=== PATIENT | male | born 1945 | race Caucasian/White ===

== ENCOUNTER 2017-07-27 08:22 | Emergency (ER) | payer MEDICARE, OTHER ==
[~2017-07-27] VITALS: Ht 172.7 cm; Wt 77.2 kg
[~2017-07-27 08:22] MED LIST: ASPI81TA52 PO; ATOR20TA66 PO; CARV3.122 PO; CETI-102 PO; CLOP75TA33 PO; DASA140T PO; LEVO50TA8 PO; LISI2.5T2 PO; NITR0.4T48 SL; PRED5TAB PO
[2017-07-27 09:11] LABS: BASOPHILS % (AUTO) 0.3 % (0-1); EOSINOPHILS # (AUTO) 0.1 X10'3 (0-0.9); EOSINOPHILS % (AUTO) 2.7 % (0-6); HEMATOCRIT 40.5 % (42.0-52.0); HEMOGLOBIN 13.6 g/dl (14.0-17.9); LYMPHOCYTES # (AUTO) 1.9 X10'3 (1.1-4.8); LYMPHOCYTES % (AUTO) 36.9 % (21-51); MEAN CORPUSCULAR HEMOGLOBIN 28.3 PG (27.0-31.0); MEAN CORPUSCULAR HGB CONC 33.5 % (33.0-36.5); MEAN CORPUSCULAR VOLUME 84.3 FL (78-98); MEAN PLATELET VOLUME 6.6 FL (7.4-10.4); MONOCYTES # (AUTO) 0.6 X10'3 (0-0.9); MONOCYTES % (AUTO) 12.3 % (2-12); NEUTROPHILS # (AUTO) 2.5 X10'3 (1.8-7.7); NEUTROPHILS % (AUTO) 47.8 % (42-75); PLATELET COUNT 293 X10'3 (140-440); WHITE BLOOD COUNT 5.3 X10'3 (4.5-11.0)
[2017-07-27 09:22] LABS: PARTIAL THROMBOPLASTIN TIME 30 SECONDS (22-32)
[2017-07-27 09:38] LABS: ALANINE AMINOTRANSFERASE 21 U/L (12-78); ALBUMIN 3.6 G/DL (3.4-5.0); ALBUMIN/GLOBULIN RATIO 0.9 (1.1-1.5); ALKALINE PHOSPHATASE 82 IU/L (46-116); ANION GAP 10 (8-16); ASPARTATE AMINO TRANSFERASE 27 U/L (10-37); BILIRUBIN,TOTAL 0.2 MG/DL (0.1-1.0); BLOOD UREA NITROGEN 21 MG/DL (7-18); BUN/CREATININE RATIO 23.1 (5.4-32.0); CALCIUM 9.1 MG/DL (8.5-10.1); CHLORIDE 108 MMOL/L (99-107); CREATININE 0.91 MG/DL (0.60-1.10); GLUCOSE 96 MG/DL (70-104); POTASSIUM 3.8 MMOL/L (3.5-5.1); SODIUM 144 MMOL/L (135-145); TOTAL CARBON DIOXIDE 25.9 MMOL/L (24-32); TOTAL PROTEIN 7.7 G/DL (6.4-8.2); eGFR 82 ML/MIN
[2017-07-27 11:28] VITALS: BP 160/92
[2017-07-27 11:30] VITALS: BP 160/92
[2017-07-27 11:32] VITALS: BP 160/92
[2017-07-27 11:36] VITALS: BP 175/98
[2017-07-27 11:40] VITALS: BP 175/98
[2017-07-27 12:42] VITALS: BP 183/93
== END 2017-07-27 12:47 | disposition home or self-care (01) ==
LOC: ER 08:23
DX: J90 Pleural effusion, not elsewhere classified (principal); I25.10 Atherosclerotic heart disease of native coronary artery without angina pectoris; I11.0 Hypertensive heart disease with heart failure; I50.9 Heart failure, unspecified; E11.9 Type 2 diabetes mellitus without complications; E78.00 Pure hypercholesterolemia, unspecified; Z95.5 Presence of coronary angioplasty implant and graft; Z98.890 Other specified postprocedural states; Z88.8 Allergy status to other drugs, medicaments and biological substances; Z79.82 Long term (current) use of aspirin; Z79.899 Other long term (current) drug therapy
CPT/HCPCS: 32554; 32555; 36415; 71045; 80053; 83880; 84145; 84484; 85025; 85610; 85730; 93005; 99285

== ENCOUNTER 2018-04-21 10:36 | Emergency (ER) | payer MEDICARE, OTHER ==
[~2018-04-21] VITALS: Ht 172.7 cm; Wt 75.9 kg
[2018-04-21 10:54] VITALS: BP 165/70
== END 2018-04-21 12:32 | disposition left against medical advice (07) ==
LOC: ER 10:37
DX: S60.921A Unspecified superficial injury of right hand, initial encounter (principal); Z53.21 Procedure and treatment not carried out due to patient leaving prior to being seen by health care provider; X58.XXXA Exposure to other specified factors, initial encounter; Y93.89 Activity, other specified; Y92.89 Other specified places as the place of occurrence of the external cause; Y99.8 Other external cause status

== ENCOUNTER 2018-06-10 07:35 | Inpatient (IN) | payer MEDICARE, OTHER | END 2018-06-13 13:35 | disposition home or self-care (01) | LOC: SUR 3N 06-11 00:23 → ER 07:35 → ED HOLD 10:10 → SUR 3N 11:40 | DX: L03.113 Cellulitis of right upper limb (principal); I50.33 Acute on chronic diastolic (congestive) heart failure; C91.10 Chronic lymphocytic leukemia of B-cell type not having achieved remission; Z85.820 Personal history of malignant melanoma of skin; E78.5 Hyperlipidemia, unspecified; I11.0 Hypertensive heart disease with heart failure ==

== ENCOUNTER 2021-03-25 08:49 | Emergency (ER) | payer BC, MEDICARE ==
[~2021-03-25] VITALS: Ht 172.7 cm; Wt 77.3 kg
[~2021-03-25 08:49] MED LIST changes: -CARV3.122 PO; -CETI-102 PO; +CETI-90 PO; -CLOP75TA33 PO; -DASA140T PO; -LEVO50TA8 PO; +LISI10TA27 PO; -LISI2.5T2 PO; -NITR0.4T48 SL; -PRED5TAB PO
[2021-03-25 09:33] LABS: BASOPHILS % (AUTO) 0.3 % (0-1); EOSINOPHILS # (AUTO) 0.1 X10'3 (0-0.9); EOSINOPHILS % (AUTO) 1.2 % (0-6); HEMATOCRIT 45.5 % (42.0-52.0); HEMOGLOBIN 15.3 g/dl (14.0-17.9); LYMPHOCYTES % (AUTO) 17.1 % (21-51); MEAN CORPUSCULAR HEMOGLOBIN 29.3 PG (27.0-31.0); MEAN CORPUSCULAR HGB CONC 33.6 g/dL (33.0-36.5); MEAN CORPUSCULAR VOLUME 87.3 FL (78-98); MEAN PLATELET VOLUME 7.6 FL (7.4-10.4); MONOCYTES # (AUTO) 0.5 X10'3 (0-0.9); MONOCYTES % (AUTO) 9.6 % (2-12); NEUTROPHILS % (AUTO) 71.8 % (42-75); PLATELET COUNT 252 X10'3 (140-440); RED BLOOD COUNT 5.21 X10'6 (4.70-6.10); RED CELL DISTRIBUTION WIDTH 14.8 % (11.5-14.5); WHITE BLOOD COUNT 5.6 X10'3 (4.5-11.0)
[2021-03-25 09:46] LABS: ALANINE AMINOTRANSFERASE 39 U/L (12-78); ALBUMIN 3.8 G/DL (3.4-5.0); ALBUMIN/GLOBULIN RATIO 0.9 (1.1-1.5); ALKALINE PHOSPHATASE 104 IU/L (46-116); ANION GAP 10 (8-16); ASPARTATE AMINO TRANSFERASE 29 U/L (10-37); BILIRUBIN,TOTAL 0.5 MG/DL (0.1-1.0); BLOOD UREA NITROGEN 17 MG/DL (7-18); BUN/CREATININE RATIO 17.9 (5.4-32.0); CHLORIDE 105 MMOL/L (99-107); CREATININE 0.95 MG/DL (0.60-1.10); GLUCOSE 107 MG/DL (70-104); POTASSIUM 4.2 MMOL/L (3.5-5.1); SODIUM 144 MMOL/L (135-145); TOTAL CARBON DIOXIDE 28.7 MMOL/L (24-32); TOTAL PROTEIN 8.2 G/DL (6.4-8.2); eGFR 77 ML/MIN
[2021-03-25] MEDS ORDERED: HYDR25TA5 PO (11:06)
[2021-03-25 11:18] VITALS: BP 164/95
== END 2021-03-25 11:21 | disposition home or self-care (01) ==
LOC: ER 08:50
DX: J90 Pleural effusion, not elsewhere classified (principal); R53.83 Other fatigue; R06.02 Shortness of breath; R06.00 Dyspnea, unspecified; R07.89 Other chest pain; I25.10 Atherosclerotic heart disease of native coronary artery without angina pectoris; E78.00 Pure hypercholesterolemia, unspecified; I11.0 Hypertensive heart disease with heart failure; I50.9 Heart failure, unspecified; E11.9 Type 2 diabetes mellitus without complications; Z85.9 Personal history of malignant neoplasm, unspecified; Z98.890 Other specified postprocedural states; Z88.8 Allergy status to other drugs, medicaments and biological substances; Z79.82 Long term (current) use of aspirin; Z79.899 Other long term (current) drug therapy
CPT/HCPCS: 36415; 71045; 80053; 83880; 84484; 85025; 93005; 99285

== ENCOUNTER 2022-09-23 10:49 | Emergency (ER) | payer BC ==
[~2022-09-23] VITALS: Ht 172.7 cm; Wt 78.4 kg
[~2022-09-23 10:49] MED LIST changes: +HYDR25TA5 PO
[2022-09-23 10:51] VITALS: BP 145/87
[2022-09-23] MEDS ORDERED: TETanus/Pertussis (Acell)/Diphther VAC/PF (Tdap-Adult) 0.5ml syringe IMVAC ONE (12:15)
[2022-09-23] MEDS ORDERED: bacitracin 15gm ointment TP ONE (12:15)
[2022-09-23] MEDS ORDERED: LIDOcaine 1% W/epiNEPHrine 1:100,000 20ml vial IJ ONE (12:17)
== END 2022-09-23 13:53 | disposition home or self-care (01) ==
LOC: ER 10:49
DX: S61.512A Laceration without foreign body of left wrist, initial encounter (principal); I11.0 Hypertensive heart disease with heart failure; E11.9 Type 2 diabetes mellitus without complications; E78.00 Pure hypercholesterolemia, unspecified; W19.XXXA Unspecified fall, initial encounter; Y93.89 Activity, other specified; Y92.89 Other specified places as the place of occurrence of the external cause; Y99.8 Other external cause status
CPT/HCPCS: 12004; 90471; 90715; 99283; A6258; A6449

== ENCOUNTER 2023-07-01 08:40 | Inpatient (IN) | payer BC, MEDICARE ==
[~2023-07-01] VITALS: Ht 172.7 cm; Wt 73.2 kg
[2023-07-01 09:24] LABS: BASOPHILS % (AUTO) 0.3 % (0-1); EOSINOPHILS # (AUTO) 0.2 X10'3 (0-0.9); EOSINOPHILS % (AUTO) 2.9 % (0-6); HEMATOCRIT 44.2 % (42.0-52.0); HEMOGLOBIN 14.4 g/dl (14.0-17.9); LYMPHOCYTES # (AUTO) 1.5 X10'3 (1.1-4.8); LYMPHOCYTES % (AUTO) 23.4 % (21-51); MEAN CORPUSCULAR HEMOGLOBIN 28.8 PG (27.0-31.0); MEAN CORPUSCULAR HGB CONC 32.6 g/dL (33.0-36.5); MEAN CORPUSCULAR VOLUME 88.3 FL (78-98); MEAN PLATELET VOLUME 7.7 FL (7.4-10.4); MONOCYTES # (AUTO) 0.8 X10'3 (0-0.9); MONOCYTES % (AUTO) 11.5 % (2-12); NEUTROPHILS # (AUTO) 4.1 X10'3 (1.8-7.7); NEUTROPHILS % (AUTO) 61.9 % (42-75); PLATELET COUNT 258 X10'3 (140-440); RED BLOOD COUNT 5.01 X10'6 (4.70-6.10); RED CELL DISTRIBUTION WIDTH 15.5 % (11.5-14.5); WHITE BLOOD COUNT 6.6 X10'3 (4.5-11.0)
[2023-07-01 11:28] LABS: ALBUMIN 3.5 G/DL (3.4-5.0); BLOOD UREA NITROGEN 22 MG/DL (7-18); BUN/CREATININE RATIO 25.9 (10.0-20.0); CALCIUM 8.9 MG/DL (8.5-10.1); CHLORIDE 104 MMOL/L (99-107); CREATININE 0.85 MG/DL (0.60-1.10); GLUCOSE 138 MG/DL (70-104); POTASSIUM 4.7 MMOL/L (3.5-5.1); PRO BRAIN NATRIURETIC PEPTIDE 1652 PG/ML (0-450); SODIUM 141 MMOL/L (135-145); eCRCL 69 ML/MIN; eGFR 87 ML/MIN
[2023-07-01 11:40] LABS: ANION GAP 9 (8-16); TOTAL CARBON DIOXIDE 28.4 MMOL/L (24-32)
[2023-07-01] MEDS ORDERED: iohexol 350MG/ML 100ml bottle IV ONE (11:57)
[2023-07-01] MEDS: nitroGLYCERIN 1gm ointment UD TP ONE (12:40)
[2023-07-01] MEDS: aspirin 325mg tablet PO ONE (12:40)
[2023-07-01] MEDS ORDERED: potassium Cl 20 mEq SR tablet PO PRN ×2 (14:35)
[2023-07-01] MEDS ORDERED: morphine 2 MG/ML inj. syringe IV PRN ×4 (14:35→16:20)
[2023-07-01] MEDS ORDERED: magnesium Cl slow-release 64mg tablet PO PRN (14:35)
[2023-07-01] MEDS ORDERED: HYDROcodone/acetaminophen 5mg/325mg tablet PO PRN ×2 (14:35→16:20)
[2023-07-01] MEDS ORDERED: heparin 10,000 units/1 ML INJ IV PRN (14:35)
[2023-07-01] MEDS ORDERED: ondansetron/PF 4mg/2ml inj IV PRN (14:35)
[2023-07-01] MEDS ORDERED: potassium Cl 40MEQ/1/2NS 520ml 520 ML IV PRN (14:35)
[2023-07-01] MEDS ORDERED: magnesium 2GM in 50ml NS 50 ML IV PRN (14:35)
[2023-07-01] MEDS ORDERED: magnesium 4gm in 100ml NS 100 ML IV PRN (14:35)
[2023-07-01] MEDS ORDERED: acetaminophen 325mg tablet PO PRN ×2 (14:35)
[2023-07-01] MEDS: heparin 25,000 UNIT/250ml bag 250 ML IV PRN (14:55)
[2023-07-01] MEDS: heparin 10,000 units/1 ML INJ IV ONE (14:58)
[2023-07-01] MEDS: normal saline 1000ml 1,000 ML IV SCH (14:58)
[2023-07-01] MEDS: HYDROcodone/acetaminophen 10/325mg tab PO PRN (15:07)
[2023-07-01] MEDS: carVEDilol 3.125mg tablet PO SCH (16:10)
[2023-07-01] MEDS ORDERED: HYDROcodone/acetaminophen 10/325mg tab PO PRN (16:20)
[2023-07-01] MEDS: lisinopril 10 MG tablet PO SCH (17:22)
[2023-07-01 17:31] VITALS: BP 176/91; PULSE 55; RESP 16; TEMP 98.3; O2SAT 100
[2023-07-01 18:00] VITALS: BP 162/85; PULSE 56; RESP 16; TEMP 97.9; O2SAT 98
[2023-07-01 19:08] LABS: APTT 61 SECONDS (22-32); PROTHROMBIN TIME 10.9 SECONDS (9.0-12.0)
[2023-07-01 22:00] VITALS: BP 108/55; PULSE 52; RESP 20; TEMP 96.7; O2SAT 98
[2023-07-02 02:00] VITALS: BP 99/57; PULSE 50; RESP 17; TEMP 97.1; O2SAT 96
[2023-07-02 06:00] VITALS: BP 133/71; PULSE 53; RESP 18; TEMP 97.6; O2SAT 97
[2023-07-02 07:04] LABS: MEAN CORPUSCULAR HEMOGLOBIN 28.8 PG (27.0-31.0); MEAN CORPUSCULAR HGB CONC 32.5 g/dL (33.0-36.5); MEAN CORPUSCULAR VOLUME 88.8 FL (78-98); PLATELET COUNT 247 X10'3 (140-440); RED BLOOD COUNT 4.84 X10'6 (4.70-6.10); RED CELL DISTRIBUTION WIDTH 15.6 % (11.5-14.5); WHITE BLOOD COUNT 5.7 X10'3 (4.5-11.0)
[2023-07-02 07:18] LABS: ALANINE AMINOTRANSFERASE 22 U/L (12-78); ALBUMIN 3.1 G/DL (3.4-5.0); ALBUMIN/GLOBULIN RATIO 0.8 (1.1-1.5); ALKALINE PHOSPHATASE 68 IU/L (46-116); ANION GAP 14 (8-16); ASPARTATE AMINO TRANSFERASE 27 U/L (10-37); BILIRUBIN,TOTAL 0.4 MG/DL (0.1-1.0); BLOOD UREA NITROGEN 23 MG/DL (7-18); BUN/CREATININE RATIO 27.7 (10.0-20.0); CALCIUM 8.2 MG/DL (8.5-10.1); CHLORIDE 106 MMOL/L (99-107); CREATININE 0.83 MG/DL (0.60-1.10); GLUCOSE 91 MG/DL (70-104); POTASSIUM 4.1 MMOL/L (3.5-5.1); SODIUM 142 MMOL/L (135-145); TOTAL CARBON DIOXIDE 22.4 MMOL/L (24-32); TOTAL PROTEIN 6.8 G/DL (6.4-8.2); eCRCL 71 ML/MIN; eGFR 90 ML/MIN
[2023-07-02 07:30] VITALS: RESP 18; O2SAT 97
[2023-07-02 07:39] LABS: PLATELET ESTIMATE NORMAL; TOTAL CELLS COUNTED 100
[2023-07-02] MEDS: azithromycin 250mg tablet PO SCH (08:03)
[2023-07-02] MEDS: CefTRIAXone/D5W-Rocephin 1gm 50 ML IV SCH (08:40)
[2023-07-02 11:00] VITALS: BP 154/82; PULSE 53; RESP 20; TEMP 97.7; O2SAT 96
[2023-07-02] MEDS: carVEDilol 3.125mg tablet PO ONE (12:57)
[2023-07-02] MEDS ORDERED: ASPI81TA52 PO (14:03)
[2023-07-02] MEDS ORDERED: EMPA10TA PO (14:03)
[2023-07-02] MEDS ORDERED: COR3.125T PO (14:03)
[2023-07-02] MEDS ORDERED: LISI10TA27 PO (14:03)
[2023-07-02] MEDS ORDERED: LEVO750T68 PO (14:03)
[2023-07-02] MEDS ORDERED: ATOR20TA66 PO (14:03)
[2023-07-02] MEDS ORDERED: NITR0.4T51 SL (14:09)
[2023-07-05] MEDS ORDERED: ATOR20TA PO (06:34)
[2023-07-05] MEDS ORDERED: LEVO750T68 PO (06:34)
[2023-07-05] MEDS ORDERED: NITR0.4T51 SL (06:34)
[2023-07-05] MEDS ORDERED: EMPA10TA PO (06:34)
[2023-07-05] MEDS ORDERED: CARV3.122 PO (06:34)
[2023-07-05] MEDS ORDERED: AMOX-580 PO (06:34)
[2023-07-05] MEDS ORDERED: LISI10TA27 PO (06:34)
[2023-07-06] MEDS ORDERED: ATOR20TA PO (10:40)
[2023-07-06] MEDS ORDERED: NITR0.4T51 SL (10:40)
[2023-07-06] MEDS ORDERED: ASPI81TA52 PO (10:40)
[2023-07-06] MEDS ORDERED: LISI10TA27 PO (10:40)
[2023-07-06] MEDS ORDERED: CLOP-32 PO (10:40)
[2023-07-06] MEDS ORDERED: CARV3.122 PO (10:40)
[2023-07-06] MEDS ORDERED: EMPA10TA PO (10:40)
[2023-07-06] MEDS ORDERED: FURO-150 PO (10:45)
== END 2023-07-02 15:47 | disposition home or self-care (01) | DRG 177 ==
LOC: ER 08:40 → ED HOLD 14:39 → PCU 3S 17:13
PROVIDERS: ADMIT Internal Medicine; ATTEND Internal Medicine
PROC: B32T1ZZ Computerized Tomography (CT Scan) of Left Pulmonary Artery using Low Osmolar Contrast (ICD-10-PCS; principal; 2023-07-01)
PROC: B3201ZZ Computerized Tomography (CT Scan) of Thoracic Aorta using Low Osmolar Contrast (ICD-10-PCS; 2023-07-01)
PROC: B32S1ZZ Computerized Tomography (CT Scan) of Right Pulmonary Artery using Low Osmolar Contrast (ICD-10-PCS; 2023-07-01)
DX: J69.0 Pneumonitis due to inhalation of food and vomit (principal); I21.A1 Myocardial infarction type 2; I50.43 Acute on chronic combined systolic (congestive) and diastolic (congestive) heart failure; C91.00 Acute lymphoblastic leukemia not having achieved remission; R59.0 Localized enlarged lymph nodes; J47.9 Bronchiectasis, uncomplicated; I34.0 Nonrheumatic mitral (valve) insufficiency; R91.8 Other nonspecific abnormal finding of lung field; I35.0 Nonrheumatic aortic (valve) stenosis; I11.0 Hypertensive heart disease with heart failure; E11.9 Type 2 diabetes mellitus without complications; E78.00 Pure hypercholesterolemia, unspecified; R00.1 Bradycardia, unspecified; I25.10 Atherosclerotic heart disease of native coronary artery without angina pectoris; Z82.49 Family history of ischemic heart disease and other diseases of the circulatory system; Z95.5 Presence of coronary angioplasty implant and graft; Z88.8 Allergy status to other drugs, medicaments and biological substances; Z79.899 Other long term (current) drug therapy; Z79.82 Long term (current) use of aspirin; Z92.21 Personal history of antineoplastic chemotherapy; Z85.820 Personal history of malignant melanoma of skin
CPT/HCPCS: 36415; 71045; 71275; 80048; 80053; 83880; 84484; 85007; 85025; 85610; 85730; 93005; 93306; 99291; G0378; J0696; J1644; J3490; J7030; Q9967

== ENCOUNTER 2023-07-12 09:55 | Emergency (ER) | payer MEDICARE ==
[~2023-07-12] VITALS: Ht 172.7 cm; Wt 72.7 kg
[~2023-07-12 09:55] MED LIST changes: +ATOR20TA PO; -ATOR20TA66 PO; +CARV3.122 PO; +CLOP-32 PO; +EMPA10TA PO; +FURO-150 PO; -HYDR25TA5 PO; +NITR0.4T51 SL
[2023-07-12 09:59] VITALS: TEMP 97.8
[2023-07-12 10:48] VITALS: BP 152/79; PULSE 72; O2SAT 98
[2023-07-12 10:49] VITALS: RESP 20
[2023-07-12 12:39] LABS: BILIRUBIN,URINE NEGATIVE (Neg); CLARITY,URINE CLEAR (Clear); COLOR,URINE YELLOW (Yellow); GLUCOSE, URINE >=1000 mg/dl (Neg); KETONES,URINE TRACE mg/dl (Neg); LEUKOCYTE ESTERASE ,URINE NEGATIVE (Neg); NITRITES, URINE NEGATIVE (Neg); OCCULT BLOOD,URINE NEGATIVE (Neg); PROTEIN,URINE TRACE mg/dl (Neg); UROBILINOGEN,URINE 0.2 E.U/dL (0.2-1.0)
[2023-07-12 12:50] LABS: UA COLLECTION TYPE URINAL
[2023-07-12 12:51] LABS: SQUAMOUS EPITHELIAL CELL,UR FEW /LPF (FEW)
[2023-07-12 12:52] LABS: BACTERIA,URINE FEW /HPF (Neg); WBC,URINE 0-4 /HPF (0-4)
[2023-07-12 13:12] LABS: BASOPHILS % (AUTO) 0.2 % (0-1); EOSINOPHILS # (AUTO) 0.1 X10'3 (0-0.9); HEMATOCRIT 38.7 % (42.0-52.0); HEMOGLOBIN 12.7 g/dl (14.0-17.9); LYMPHOCYTES # (AUTO) 1.4 X10'3 (1.1-4.8); MEAN CORPUSCULAR HEMOGLOBIN 28.9 PG (27.0-31.0); MEAN CORPUSCULAR HGB CONC 32.8 g/dL (33.0-36.5); MEAN PLATELET VOLUME 7.2 FL (7.4-10.4); MONOCYTES # (AUTO) 0.9 X10'3 (0-0.9); MONOCYTES % (AUTO) 10.7 % (2-12); NEUTROPHILS # (AUTO) 6.3 X10'3 (1.8-7.7); NEUTROPHILS % (AUTO) 72.1 % (42-75); PLATELET COUNT 300 X10'3 (140-440); RED CELL DISTRIBUTION WIDTH 14.9 % (11.5-14.5); WHITE BLOOD COUNT 8.7 X10'3 (4.5-11.0)
[2023-07-12 13:26] LABS: ALANINE AMINOTRANSFERASE 21 U/L (12-78); ALBUMIN 3.5 G/DL (3.4-5.0); ALBUMIN/GLOBULIN RATIO 0.9 (1.1-1.5); ALKALINE PHOSPHATASE 85 IU/L (46-116); ANION GAP 9 (8-16); ASPARTATE AMINO TRANSFERASE 26 U/L (10-37); BILIRUBIN,TOTAL 0.5 MG/DL (0.1-1.0); BLOOD UREA NITROGEN 20 MG/DL (7-18); CALCIUM 8.6 MG/DL (8.5-10.1); CHLORIDE 101 MMOL/L (99-107); GLUCOSE 91 MG/DL (70-104); LIPASE 25 U/L (16-77); POTASSIUM 3.3 MMOL/L (3.5-5.1); SODIUM 141 MMOL/L (135-145); TOTAL CARBON DIOXIDE 31.3 MMOL/L (24-32); TOTAL PROTEIN 7.3 G/DL (6.4-8.2)
[2023-07-12 13:33] LABS: BUN/CREATININE RATIO 19.8 (10.0-20.0); CREATININE 1.01 MG/DL (0.60-1.10); eCRCL 58 ML/MIN; eGFR 71 ML/MIN
[2023-07-12] MEDS ORDERED: DOCU-148 PO (15:22)
[2023-07-12] MEDS ORDERED: POLY119P2 PO (15:22)
== END 2023-07-12 15:30 | disposition home or self-care (01) ==
LOC: ER 09:56
DX: K59.00 Constipation, unspecified (principal); K62.89 Other specified diseases of anus and rectum; I25.10 Atherosclerotic heart disease of native coronary artery without angina pectoris; I11.0 Hypertensive heart disease with heart failure; I50.9 Heart failure, unspecified; E78.00 Pure hypercholesterolemia, unspecified; E11.9 Type 2 diabetes mellitus without complications; Z85.6 Personal history of leukemia; Z88.8 Allergy status to other drugs, medicaments and biological substances; Z79.82 Long term (current) use of aspirin; Z79.899 Other long term (current) drug therapy
CPT/HCPCS: 36415; 74018; 74176; 80053; 81001; 83690; 85025; 99284

== ENCOUNTER 2023-08-05 08:52 | Outpatient (CLI) | payer MEDICARE ==
[~2023-08-05 08:52] MED LIST changes: +DOCU-148 PO; +POLY119P2 PO
[2023-08-05] MEDS ORDERED: iohexol 300mg/ml 100ml inj. ONE (09:16)
== END 2023-08-05 23:59 | disposition home or self-care (01) ==
LOC: RAD 08:52
PROVIDERS: ATTEND Surgery
DX: I51.7 Cardiomegaly (principal); J98.4 Other disorders of lung; N28.1 Cyst of kidney, acquired
CPT/HCPCS: 71260; J3490; Q9967

== ENCOUNTER 2023-08-25 08:15 | Emergency (ER) | payer BC, MEDICARE ==
[~2023-08-25] VITALS: Ht 177.8 cm; Wt 72.7 kg
[~2023-08-25 08:15] MED LIST changes: -FURO-150 PO
[2023-08-25] MEDS: morphine 4 MG/ML inj SYRINge IV ONE ×3 (08:35→22:15)
[2023-08-25 08:39] LABS: BASOPHILS % (AUTO) 0.5 % (0-1); EOSINOPHILS # (AUTO) 0.1 X10'3 (0-0.9); EOSINOPHILS % (AUTO) 2.4 % (0-6); HEMATOCRIT 44.7 % (42.0-52.0); HEMOGLOBIN 14.7 g/dl (14.0-17.9); LYMPHOCYTES % (AUTO) 34.4 % (21-51); MEAN CORPUSCULAR HEMOGLOBIN 29.3 PG (27.0-31.0); MEAN CORPUSCULAR HGB CONC 32.8 g/dL (33.0-36.5); MEAN CORPUSCULAR VOLUME 89.3 FL (78-98); MEAN PLATELET VOLUME 7.7 FL (7.4-10.4); MONOCYTES # (AUTO) 0.7 X10'3 (0-0.9); MONOCYTES % (AUTO) 12.4 % (2-12); NEUTROPHILS % (AUTO) 50.3 % (42-75); PLATELET COUNT 242 X10'3 (140-440); RED CELL DISTRIBUTION WIDTH 14.9 % (11.5-14.5); WHITE BLOOD COUNT 5.9 X10'3 (4.5-11.0)
[2023-08-25 08:49] LABS: ALBUMIN 3.7 G/DL (3.4-5.0); ANION GAP 10 (8-16); BLOOD UREA NITROGEN 25 MG/DL (7-18); BUN/CREATININE RATIO 24.3 (10.0-20.0); CALCIUM 9.4 MG/DL (8.5-10.1); CHLORIDE 106 MMOL/L (99-107); CREATININE 1.03 MG/DL (0.60-1.10); GLUCOSE 115 MG/DL (70-104); POTASSIUM 4.2 MMOL/L (3.5-5.1); SODIUM 142 MMOL/L (135-145); TOTAL CARBON DIOXIDE 25.6 MMOL/L (24-32); eCRCL 61 ML/MIN; eGFR 70 ML/MIN
[2023-08-25] MEDS: TETanus/Pertussis (Acell)/Diphther VAC/PF (Tdap-Adult) 0.5ml syringe IMVAC ONE (09:01)
[2023-08-25] MEDS: LIDOcaine 1% W/epiNEPHrine 1:100,000 20ml vial IJ ONE (10:10)
[2023-08-25] MEDS ORDERED: HYDR-3965 PO (13:56)
[2023-08-25] MEDS ORDERED: CEPH-585 PO (13:56)
[2023-08-25] MEDS: cephalexin 500mg capsule PO ONE (14:12)
[2023-08-25] MEDS: cephalexin 250mg capsule PO SCH (22:15)
[2023-08-25] MEDS: HYDROcodone/acetaminophen 5mg/325mg tablet PO ONE (22:25)
[2023-08-26] MEDS: HYDROcodone/acetaminophen 5mg/325mg tablet PO ONE (00:58)
[2023-08-26 07:47] VITALS: O2SAT 98
[2023-08-26] MEDS: morphine sulfate IR 15MG tablet PO STA (08:09)
[2023-08-26 09:39] VITALS: BP 156/89; PULSE 69
[2023-08-26 09:41] VITALS: RESP 16
[2023-08-26 13:19] VITALS: TEMP 97.4
== END 2023-08-26 13:20 | disposition home or self-care (01) ==
LOC: ER 08:16
DX: S62.303B Unspecified fracture of third metacarpal bone, left hand, initial encounter for open fracture (principal); S62.304B Unspecified fracture of fourth metacarpal bone, right hand, initial encounter for open fracture; Z88.8 Allergy status to other drugs, medicaments and biological substances; I25.10 Atherosclerotic heart disease of native coronary artery without angina pectoris; I11.0 Hypertensive heart disease with heart failure; I50.9 Heart failure, unspecified; E78.00 Pure hypercholesterolemia, unspecified; E11.9 Type 2 diabetes mellitus without complications; Z85.9 Personal history of malignant neoplasm, unspecified; Z98.890 Other specified postprocedural states; W19.XXXA Unspecified fall, initial encounter; Y93.89 Activity, other specified; Y92.89 Other specified places as the place of occurrence of the external cause; Y99.8 Other external cause status
CPT/HCPCS: 12002; 36415; 73110; 73130; 80048; 85025; 86885; 86900; 86901; 90471; 90715; 96374; 96376; 99285; A6223; J2270; 99284; A6258; A6446; A6449

== ENCOUNTER 2024-03-27 07:06 | Inpatient (IN) | payer BC ==
[~2024-03-27] VITALS: Ht 172.7 cm; Wt 76.0 kg
[~2024-03-27 07:06] MED LIST changes: +CEPH-585 PO
[2024-03-27 07:45] LABS: BASOPHILS % (AUTO) 0.2 % (0-1); EOSINOPHILS # (AUTO) 0.1 X10'3 (0-0.9); EOSINOPHILS % (AUTO) 2.4 % (0-6); HEMATOCRIT 46.5 % (42.0-52.0); HEMOGLOBIN 15.2 g/dl (14.0-17.9); LYMPHOCYTES # (AUTO) 1.3 X10'3 (1.1-4.8); LYMPHOCYTES % (AUTO) 22.8 % (21-51); MEAN CORPUSCULAR HGB CONC 32.6 g/dL (33.0-36.5); MEAN CORPUSCULAR VOLUME 91.8 FL (78-98); MEAN PLATELET VOLUME 7.9 FL (7.4-10.4); MONOCYTES # (AUTO) 0.7 X10'3 (0-0.9); MONOCYTES % (AUTO) 12.6 % (2-12); NEUTROPHILS # (AUTO) 3.6 X10'3 (1.8-7.7); PLATELET COUNT 234 X10'3 (140-440); RED BLOOD COUNT 5.06 X10'6 (4.70-6.10); RED CELL DISTRIBUTION WIDTH 15.3 % (11.5-14.5); WHITE BLOOD COUNT 5.9 X10'3 (4.5-11.0)
[2024-03-27 08:03] LABS: ALANINE AMINOTRANSFERASE 30 U/L (12-78); ALBUMIN 3.8 G/DL (3.4-5.0); ALBUMIN/GLOBULIN RATIO 0.8 (1.1-1.5); ALKALINE PHOSPHATASE 80 IU/L (46-116); ANION GAP 5 (8-16); ASPARTATE AMINO TRANSFERASE 30 U/L (10-37); BILIRUBIN,TOTAL 0.5 MG/DL (0.1-1.0); BLOOD UREA NITROGEN 16 MG/DL (7-18); BUN/CREATININE RATIO 18.6 (10.0-20.0); CALCIUM 8.8 MG/DL (8.5-10.1); CHLORIDE 106 MMOL/L (99-107); CREATININE 0.86 MG/DL (0.60-1.10); GLUCOSE 99 MG/DL (70-104); POTASSIUM 3.8 MMOL/L (3.5-5.1); SODIUM 139 MMOL/L (135-145); TOTAL CARBON DIOXIDE 28.4 MMOL/L (24-32); TOTAL PROTEIN 8.3 G/DL (6.4-8.2); eCRCL 67 ML/MIN; eGFR 86 ML/MIN
[2024-03-27 08:14] LABS: PRO BRAIN NATRIURETIC PEPTIDE 1190 PG/ML (0-450)
[2024-03-27] MEDS: HEPARIN DRIP-CARDIAC**PHARMACIST-TO-DOSE IV ONE (09:15)
[2024-03-27 09:57] LABS: D-DIMER 0.64 MG/L FEU (0-0.50)
[2024-03-27] MEDS: MESSAGE TO NURSING IV ONE ×2 (10:00→18:04)
[2024-03-27] MEDS: aspirin 81mg tab.chew PO ONE (10:07)
[2024-03-27] MEDS: heparin 10,000 units/1 ML INJ IV ONE (10:12)
[2024-03-27] MEDS: heparin 25,000 UNIT/250ml bag 250 ML IV PRN (10:13)
[2024-03-27 10:26] LABS: APTT 28 SECONDS (22-32); PROTHROMBIN TIME 10.8 SECONDS (9.0-12.0)
[2024-03-27] MEDS ORDERED: morphine 2 MG/ML inj. syringe IV PRN (10:45)
[2024-03-27] MEDS ORDERED: potassium Cl 40MEQ/1/2NS 520ml 520 ML IV PRN (10:45)
[2024-03-27] MEDS ORDERED: ondansetron/PF 4mg/2ml inj IV PRN (10:45)
[2024-03-27] MEDS ORDERED: magnesium sulf-water 4G/100mL 100 ML IV PRN (10:45)
[2024-03-27] MEDS ORDERED: magnesium Cl slow-release 64mg tablet PO PRN (10:45)
[2024-03-27] MEDS ORDERED: potassium Cl 20 mEq SR tablet PO PRN ×2 (10:45)
[2024-03-27] MEDS ORDERED: acetaminophen 325mg tablet PO PRN (10:45)
[2024-03-27] MEDS ORDERED: magnesium sulf-water 2g/50mL 50 ML IV PRN (10:45)
[2024-03-27] MEDS ORDERED: FURO20TA4 PO (12:43)
[2024-03-27] MEDS ORDERED: LEVO75TA7 PO (12:43)
[2024-03-27 13:47] LABS: BILIRUBIN,URINE NEGATIVE (Neg); CLARITY,URINE CLEAR (Clear); COLOR,URINE YELLOW (Yellow); GLUCOSE, URINE 500 mg/dl (Neg); KETONES,URINE NEGATIVE (Neg); LEUKOCYTE ESTERASE ,URINE NEGATIVE (Neg); NITRITES, URINE NEGATIVE (Neg); OCCULT BLOOD,URINE NEGATIVE (Neg); PH,URINE 5.5 (4.8-8.0); PROTEIN,URINE TRACE mg/dl (Neg); UROBILINOGEN,URINE 0.2 E.U/dL (0.2-1.0)
[2024-03-27 13:50] LABS: UA COLLECTION TYPE URINAL
[2024-03-27 13:53] LABS: AMORPHOUS URATES 1+; BACTERIA,URINE NONE SEEN /HPF (Neg); MUCUS STRANDS NONE SEEN /LPF (Neg); RBC,URINE 0-2 /HPF (0-2); SQUAMOUS EPITHELIAL CELL,UR NONE SEEN /LPF (FEW); WBC,URINE 0-4 /HPF (0-4)
[2024-03-27 16:15] LABS: CHOL/HDL RATIO 2.5 (0.00-4.99); CHOLESTEROL 136 MG/DL (0-200); HDL CHOLESTEROL 55 MG/DL (35-60); LDL CHOLESTEROL 78 MG/DL (50-100); TRIGLYCERIDES 38 MG/DL (20-135)
[2024-03-27 16:30] VITALS: RESP 14
[2024-03-27 18:00] VITALS: BP 144/66; PULSE 61; RESP 18; TEMP 97.8; O2SAT 95
[2024-03-27 20:00] VITALS: RESP 18; O2SAT 99
[2024-03-27] MEDS: K and/or MAG REPLACEMENT MC SCH (20:00)
[2024-03-27] MEDS ORDERED: heparin, porcine 5000 units/ml vial SQ SCH (20:00)
[2024-03-27 22:00] VITALS: BP 147/72; PULSE 59; RESP 20; TEMP 97.7; O2SAT 99
[2024-03-28] VITALS (8 sets, daily range): BP systolic 105–135; BP diastolic 49–88; PULSE 49–59; RESP 14–18; TEMP 97–98.2; O2SAT 96–99
[2024-03-28] MEDS: MESSAGE TO NURSING IV ONE ×4 (00:45→23:28)
[2024-03-28 06:21] LABS: BASOPHILS % (AUTO) 0.3 % (0-1); EOSINOPHILS # (AUTO) 0.2 X10'3 (0-0.9); EOSINOPHILS % (AUTO) 3.1 % (0-6); HEMATOCRIT 41.8 % (42.0-52.0); HEMOGLOBIN 13.8 g/dl (14.0-17.9); LYMPHOCYTES # (AUTO) 1.6 X10'3 (1.1-4.8); LYMPHOCYTES % (AUTO) 28.3 % (21-51); MEAN CORPUSCULAR VOLUME 90.7 FL (78-98); MEAN PLATELET VOLUME 8.1 FL (7.4-10.4); MONOCYTES # (AUTO) 0.6 X10'3 (0-0.9); MONOCYTES % (AUTO) 9.6 % (2-12); NEUTROPHILS # (AUTO) 3.4 X10'3 (1.8-7.7); NEUTROPHILS % (AUTO) 58.7 % (42-75); PLATELET COUNT 197 X10'3 (140-440); RED BLOOD COUNT 4.61 X10'6 (4.70-6.10); WHITE BLOOD COUNT 5.8 X10'3 (4.5-11.0)
[2024-03-28 06:26] LABS: ALBUMIN 3.2 G/DL (3.4-5.0); ANION GAP 7 (8-16); BLOOD UREA NITROGEN 15 MG/DL (7-18); BUN/CREATININE RATIO 19.7 (10.0-20.0); CALCIUM 8.8 MG/DL (8.5-10.1); CHLORIDE 108 MMOL/L (99-107); CHOL/HDL RATIO 2.5 (0.00-4.99); CHOLESTEROL 133 MG/DL (0-200); CREATININE 0.76 MG/DL (0.60-1.10); GLUCOSE 98 MG/DL (70-104); HDL CHOLESTEROL 53 MG/DL (35-60); LDL CHOLESTEROL 70 MG/DL (50-100); MAGNESIUM 1.8 MG/DL (1.5-2.4); POTASSIUM 4.1 MMOL/L (3.5-5.1); SODIUM 142 MMOL/L (135-145); TOTAL CARBON DIOXIDE 26.6 MMOL/L (24-32); TRIGLYCERIDES 79 MG/DL (20-135); eCRCL 76 ML/MIN; eGFR > 90 ML/MIN
[2024-03-28] MEDS: aspirin 81mg tab.chew PO ONE (10:48)
[2024-03-28] MEDS: isosorbide mononitrate 30mg tab.SR.24H PO SCH (10:48)
[2024-03-28] MEDS: clopidogrel 75mg tablet PO SCH (10:48)
[2024-03-28] MEDS: atorvastatin 20mg tablet PO SCH (20:10)
[2024-03-28] MEDS: heparin 10,000 units/1 ML INJ IV PRN (23:24)
[2024-03-29 02:00] VITALS: BP 108/58; PULSE 53; RESP 16; TEMP 97.6; O2SAT 98
[2024-03-29 06:19] LABS: BASOPHILS % (AUTO) 0.3 % (0-1); EOSINOPHILS # (AUTO) 0.2 X10'3 (0-0.9); EOSINOPHILS % (AUTO) 2.9 % (0-6); HEMATOCRIT 40.5 % (42.0-52.0); HEMOGLOBIN 13.5 g/dl (14.0-17.9); LYMPHOCYTES # (AUTO) 1.5 X10'3 (1.1-4.8); LYMPHOCYTES % (AUTO) 26.8 % (21-51); MEAN CORPUSCULAR HEMOGLOBIN 30.4 PG (27.0-31.0); MEAN CORPUSCULAR HGB CONC 33.4 g/dL (33.0-36.5); MEAN CORPUSCULAR VOLUME 91.1 FL (78-98); MEAN PLATELET VOLUME 7.9 FL (7.4-10.4); MONOCYTES # (AUTO) 0.7 X10'3 (0-0.9); MONOCYTES % (AUTO) 12.9 % (2-12); NEUTROPHILS # (AUTO) 3.3 X10'3 (1.8-7.7); NEUTROPHILS % (AUTO) 57.1 % (42-75); PLATELET COUNT 217 X10'3 (140-440); RED BLOOD COUNT 4.45 X10'6 (4.70-6.10); WHITE BLOOD COUNT 5.8 X10'3 (4.5-11.0)
[2024-03-29 06:28] LABS: ALBUMIN 3.1 G/DL (3.4-5.0); ANION GAP 6 (8-16); BLOOD UREA NITROGEN 16 MG/DL (7-18); CALCIUM 8.7 MG/DL (8.5-10.1); CHLORIDE 107 MMOL/L (99-107); GLUCOSE 107 MG/DL (70-104); MAGNESIUM 1.9 MG/DL (1.5-2.4); POTASSIUM 3.8 MMOL/L (3.5-5.1); SODIUM 140 MMOL/L (135-145); TOTAL CARBON DIOXIDE 26.7 MMOL/L (24-32); eCRCL 72 ML/MIN; eGFR > 90 ML/MIN
[2024-03-29 07:00] VITALS: BP 146/71; PULSE 57; RESP 16; TEMP 97.9; O2SAT 98
[2024-03-29 08:00] VITALS: RESP 16; O2SAT 96
[2024-03-29] MEDS: aspirin 81mg tab.chew PO SCH (08:20)
[2024-03-29] MEDS ORDERED: MESSAGE TO NURSING IV ONE (10:05)
[2024-03-29 11:00] VITALS: BP 144/75; PULSE 57; RESP 16; TEMP 97.9; O2SAT 98
[2024-03-29 12:14] VITALS: BP_SYST 113; BP_SYST 115; BP_SYST 120; BP_DIAS 62; BP_DIAS 64; BP_DIAS 70; PULSE 51; PULSE 57; PULSE 84
[2024-03-29] MEDS ORDERED: ATOR40TA72 PO (12:45)
[2024-03-29] MEDS ORDERED: MECL-302 PO (12:45)
[2024-03-29] MEDS ORDERED: ISOS30TA84 PO (12:47)
[2024-03-29 15:00] VITALS: BP 120/64; PULSE 51; RESP 16; TEMP 97.9; O2SAT 98
== END 2024-03-29 16:15 | disposition home or self-care (01) | DRG 280 ==
LOC: ER 07:08 → ED HOLD 10:47 → EDBEDREQ 14:15 → PCU 3S 15:08
PROVIDERS: ADMIT Internal Medicine; ATTEND Internal Medicine
DX: I11.0 Hypertensive heart disease with heart failure (principal); I50.43 Acute on chronic combined systolic (congestive) and diastolic (congestive) heart failure; I21.A1 Myocardial infarction type 2; C91.01 Acute lymphoblastic leukemia, in remission; N39.0 Urinary tract infection, site not specified; E78.00 Pure hypercholesterolemia, unspecified; I25.10 Atherosclerotic heart disease of native coronary artery without angina pectoris; R91.8 Other nonspecific abnormal finding of lung field; E11.9 Type 2 diabetes mellitus without complications; Z95.5 Presence of coronary angioplasty implant and graft; Z79.82 Long term (current) use of aspirin; Z85.820 Personal history of malignant melanoma of skin; Z79.01 Long term (current) use of anticoagulants; Z79.899 Other long term (current) drug therapy; Z79.02 Long term (current) use of antithrombotics/antiplatelets; Z85.828 Personal history of other malignant neoplasm of skin; Z79.84 Long term (current) use of oral hypoglycemic drugs; Z82.49 Family history of ischemic heart disease and other diseases of the circulatory system
CPT/HCPCS: 36415; 71045; 80048; 80053; 80061; 81001; 82948; 83735; 83880; 84484; 85025; 85379; 85610; 85730; 87081; 93005; 93306; 99285; G0378; J1644

== ENCOUNTER 2024-04-12 10:23 | Emergency (ER) | payer BC ==
[~2024-04-12] VITALS: Ht 172.7 cm; Wt 75.8 kg
[~2024-04-12 10:23] MED LIST changes: -ATOR20TA PO; +ATOR40TA72 PO; -CARV3.122 PO; -CEPH-585 PO; -CETI-90 PO; -DOCU-148 PO; +ISOS30TA84 PO; +LEVO75TA7 PO; +MECL-302 PO; -POLY119P2 PO
[2024-04-12 11:05] LABS: BASOPHILS % (AUTO) 0.1 % (0-1); EOSINOPHILS # (AUTO) 0.2 X10'3 (0-0.9); EOSINOPHILS % (AUTO) 3.1 % (0-6); HEMATOCRIT 44.2 % (42.0-52.0); HEMOGLOBIN 14.7 g/dl (14.0-17.9); LYMPHOCYTES # (AUTO) 1.5 X10'3 (1.1-4.8); LYMPHOCYTES % (AUTO) 21.8 % (21-51); MEAN CORPUSCULAR HEMOGLOBIN 30.5 PG (27.0-31.0); MEAN CORPUSCULAR HGB CONC 33.2 g/dL (33.0-36.5); MEAN CORPUSCULAR VOLUME 91.7 FL (78-98); MEAN PLATELET VOLUME 8.1 FL (7.4-10.4); MONOCYTES # (AUTO) 0.7 X10'3 (0-0.9); MONOCYTES % (AUTO) 10.5 % (2-12); NEUTROPHILS # (AUTO) 4.5 X10'3 (1.8-7.7); NEUTROPHILS % (AUTO) 64.5 % (42-75); PLATELET COUNT 279 X10'3 (140-440); RED BLOOD COUNT 4.82 X10'6 (4.70-6.10); RED CELL DISTRIBUTION WIDTH 15.1 % (11.5-14.5)
[2024-04-12 11:16] LABS: ALANINE AMINOTRANSFERASE 33 U/L (12-78); ALBUMIN 3.6 G/DL (3.4-5.0); ALBUMIN/GLOBULIN RATIO 0.8 (1.1-1.5); ALKALINE PHOSPHATASE 84 IU/L (46-116); ANION GAP 6 (8-16); ASPARTATE AMINO TRANSFERASE 26 U/L (10-37); BILIRUBIN,TOTAL 0.5 MG/DL (0.1-1.0); BLOOD UREA NITROGEN 17 MG/DL (7-18); BUN/CREATININE RATIO 17.7 (10.0-20.0); CALCIUM 8.9 MG/DL (8.5-10.1); CHLORIDE 106 MMOL/L (99-107); CREATININE 0.96 MG/DL (0.60-1.10); GLUCOSE 98 MG/DL (70-104); POTASSIUM 4.1 MMOL/L (3.5-5.1); SODIUM 142 MMOL/L (135-145); TOTAL CARBON DIOXIDE 30.2 MMOL/L (24-32); eCRCL 60 ML/MIN; eGFR 76 ML/MIN
[2024-04-12 11:33] LABS: PRO BRAIN NATRIURETIC PEPTIDE 868 PG/ML (0-450)
[2024-04-12] MEDS ORDERED: iohexol 350MG/ML 100ml bottle IV ONE (14:50)
[2024-04-12 16:43] VITALS: TEMP 98.3
[2024-04-12] MEDS ORDERED: FURO-150 PO (18:08)
[2024-04-12 19:06] VITALS: BP 143/71; PULSE 53; RESP 16; O2SAT 98
[2024-04-12] MEDS: furosemide 20MG tablet PO ONE (19:12)
== END 2024-04-12 19:20 | disposition home or self-care (01) ==
LOC: ER 10:24
DX: I11.0 Hypertensive heart disease with heart failure (principal); I50.9 Heart failure, unspecified; I25.10 Atherosclerotic heart disease of native coronary artery without angina pectoris; E78.00 Pure hypercholesterolemia, unspecified; E11.9 Type 2 diabetes mellitus without complications; I25.2 Old myocardial infarction; Z95.5 Presence of coronary angioplasty implant and graft; Z98.890 Other specified postprocedural states; Z79.82 Long term (current) use of aspirin; Z79.899 Other long term (current) drug therapy
CPT/HCPCS: 36415; 71045; 71275; 80053; 83880; 84484; 85025; 93005; 99285; Q9967